=== PATIENT | female | born 1965 | race Caucasian/White ===

== ENCOUNTER 2017-01-19 14:25 | Emergency (ER) | payer OTHER ==
[~2017-01-19] VITALS: Ht 172.7 cm; Wt 90.7 kg
--- NOTE | ~2017-01-19 | CT114 ---
[facility] A Service of [facility] RADIOLOGY TEXT RESULTS PATIENT: MARIAH BANEGAS LOCATION: [facility] : 69 UNIT #: [id number] AGE: [address]: Mechelle Phan APRN SEX: F ORDER DR: [id number] [facility] [address] [place], [place] [address] [id number] E MR#: [id number] #: [id number] NAME: MARIAH BANEGAS : 1965 SEX: F STUDY DATE/TIME: 01/19/2017 15:54 UNIT: [facility] ROOM: STUDY DESCRIPTION: CT Soft Tissue Neck W Cont Attending Physician: Mechelle Phan A.P.R.N. Ordering Physician: Ed Doctor [id number] [facility] REPORT This report is preliminary unless electronic signature is present EXAM CT neck soft tissue. INDICATIONS Pain and swelling in the right side of the neck for 2 weeks. Palp[address] mass. TECHNIQUE [address] of the neck soft tissue utilizing 75 mL Isovue-370 IV contrast. Coronal and sagittal reconstructions were obtained. This CT exam was performed with one or more of the following radiation dose reduction techniques: automatic exposure control, adjustment of mA and/or kV according to patient size, and iterative reconstruction. COMPARISON Facial CT 12/15/2015. FINDINGS There is some minimal stranding in the subcutaneous fat overlying the right posterior aspects of the mid right neck. There is no associated fluid collections. This is most consistent with superficial infection/cellulitis. There is no pathologically enlarged lymph nodes in this region. There is uniform enhancement of the thyroid parenchyma. There is no enlarged cervical lymphadenopathy. The nasopharynx, oropharynx, hypopharynx are within normal limits. No acute osseous abnormalities. Visualized paranasal sinuses are clear. IMPRESSION [facility] A Service [facility] RADIOLOGY TEXT RESULTS PATIENT: MARIAH BANEGAS LOCATION: [facility] : 69 UNIT #: [id number] AGE: [address]: Mechelle Phan APRN SEX: F ORDER DR: Minimal stranding within the right posterolateral aspect of the mid neck most consistent with a superficial infection/cellulitis. No loculated drainable fluid collection or abscess. Dictated by... Carlos A Arriola M.D. THIS IS AN ELECTRONICALLY VERIFIED REPORT Carlos A Arriola M.D. at 01/19/2017 9:32 PM BRIAN/jas TD: 01/19/2017 20:21 JOB #: [id number] MEDICAL IMAGING REPORT Page 1 of 1 COPY
[~2017-01-19 14:25] MED LIST: ATARAX PO; BACTRIM DS TABL1 TA1; BACTRIM DS TABL1 TA1 PO; CLEOCIN PO; ELIMITE60 GM; ELIMITE60 GM TP; FIORCET; FIORCET PO; FIORICET W/CODE1 CAP PO; FLAGYL PO; HYCODAN60 ML 5MG/ PO; IBUPROFEN800 MG PO; KEFLEX500 M1 PO; NO MEDICATIONS; PREDNISONE; PREDNISONE PO; VOLTAREN75 MG PO
[2017-01-19 15:11] LABS: BASOPHIL% 0.3 % (0-2.5); EOSINOPHIL# 0.1 X10e3 (0-0.7); HEMATOCRIT 43.5 % (35.0-45.0); HEMOGLOBIN 14.8 gm/dL (12.0-16.0); LYMPHOCYTE# 2.8 X10e3 (1.0-3.5); LYMPHOCYTE% 32.7 % (17.0-45.0); MEAN CELL VOLUME 91.2 FL (83-96); MEAN CORPUSCULAR HEMOGLOBIN 31.1 PG (28-34); MEAN CORPUSCULAR HGB CONC 34.1 g/dL (30-36); MEAN PLATELET VOLUME 8.2 FL (6.5-11.5); MONOCYTE# 0.4 X10e3 (0-1.0); MONOCYTE% 4.2 % (3.0-12.0); NEUTROPHIL# 5.3 X10e3 (1.5-7.1); NEUTROPHIL% 61.8 % (40-75); PLATELET COUNT 268 X10e3 (140-420); RED BLOOD COUNT 4.77 X10e (3.90-5.30); RED CELL DISTRIBUTION WIDTH 14.7 % (11.0-15.5); WHITE BLOOD COUNT 8.6 X10e3 (4.0-10.5)
[2017-01-19 15:14] LABS: DIFF IND NO
[2017-01-19 15:36] LABS: ALBUMIN SERUM 4.1 g/dL (3.5-5.0); BILIRUBIN, DIRECT 0.1 mg/dL (0.0-0.2); BILIRUBIN,INDIRECT 0.4 mg/dL (0.0-0.9); BILIRUBIN,TOTAL 0.5 mg/dL (0.2-2.0); BUN/CREATININE RATIO 17.5; CREATININE SERUM 0.8 mg/dL (0.6-1.4); GLOM FILT RATE Estimated 86.6 mL/min (>60); POTASSIUM 3.3 mmol/L (3.5-5.1); PROTEIN TOTAL SERUM 7.3 g/dL (6.0-8.3)
== END 2017-01-19 17:38 | disposition home or self-care (01) ==
LOC: CED 14:25 → CFTX 14:25
PROVIDERS: Nurse Practitioner
DX: L03.221 Cellulitis of neck (principal); F17.200 Nicotine dependence, unspecified, uncomplicated; Z86.718 Personal history of other venous thrombosis and embolism; Z90.49 Acquired absence of other specified parts of digestive tract; Z79.82 Long term (current) use of aspirin; Z88.0 Allergy status to penicillin
CPT/HCPCS: 36415; 70491; 80048; 80076; 85025; 96360; 99284; Q9967

== ENCOUNTER 2017-01-23 09:59 | Emergency (ER) | payer OTHER ==
--- NOTE | ~2017-01-23 | EKG ---
PATIENT: MARIAH BANEGAS UNIT #: [id number] Ventricular Rate: 58 BPM Atrial Rate: 58 BPM P-R Interval: 158 ms QRS Duration: 86 ms Q-T Interval: 460 ms QTC Calculation(Bezet): 451 ms P [place]: 33 degrees Calculated R [place]: 15 degrees Calculated T [place]: 32 degrees Diagnosis Line: Sinus bradycardia Diagnosis Line: Otherwise normal ECG Diagnosis Line: No previous ECGs available Diagnosis Line: Confirmed by SHAINA PARDO MD ([id number]) on Diagnosis Line: 01/23/2017 12:33:21 PM INTERPRETING MD: EDVIN PERALTA
--- NOTE | ~2017-01-23 | CO ---
Unit #: [id number] #: [id number] Patient: MARIAH BANEGAS [id number] [facility] [address] [place], [place] [address] [id number] E MR#: [id number] NAME: MARIAH BANEGAS ROOM: Age: 51 Sex: F Admission Date: 01/23/2017 : 1965 Attending Physician: Abhijit Irizarry M.D. Primary Care Physician: [facility] Consultation Date: 01/23/2017 CONSULTATION REPORT PATIENT IDENTIFICATION This is a 51-year-old, right-handed, female, evaluated in the ER room T6 at [facility]. SOURCE OF INFORMATION Obtained from the patient as well as medical record. 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 this morning. She apparently was on the phone with family around 20 minutes after 9 whenever she was noted to have slurred speech. EMS was called and she was brought here to [facility] ER at approximately 10:00 a.m. Code stroke was called about 4 minutes prior to arrival by EMS and we met the patient at the door. The ED physician evaluated the patient quickly at the door on the EMS stretcher and we went over to the CT scanner. The patient's vital signs were stable. Blood glucose was 114. Airway was intact. The patient was noted to have some right-sided weakness, possibly some mild ataxia and slurred speech. Over the CT scanner, her head scan was negative for any bleeding and essentially normal. Her CT angiogram was done. She did show some improvement of her symptoms, but still is exhibiting a measurable deficit on the right side. Dr. Ribeiro evaluated the patient via telemedicine robot while on CT scanner and noted ongoing dysarthria and decreased response on the right side compared to the left. Therefore, recommendation per Dr. Ribeiro was to go ahead and treat if the patient met criteria and had no contraindication and informed consent was given. I revived inclusion and exclusion criteria with the patient at length. She had absolutely no contraindications and was within the 3-hour window. Her was at the bedside. The patient consented and the was in agreement after answering their questions. Dr. Irizarry answered their questions at the bedside as well and reviewed the plan of care. The patient was adamant that she did want treatment and understood the potential risks and benefits of treatment with alteplase and that the recommendation was to consider given the measurable disabling deficit and that she met inclusion and exclusion criteria and had no contraindications. CT scan was negative for any acute intracranial hemorrhage. She is not taking any anticoagulating medications. CBC and BMP and PT/INR were unremarkable. The patient received alteplase approximately 53 minutes after arrival after discussion was done with the family and all their questions were answered. As they did have questions Unit #: [id number] #: [id number] Patient: MARIAH BANEGAS about treatment versus nontreatment, but again after discussion the patient was adamant that she wanted treatment. CT angiogram is negative for any intracranial vascular cut off or high-grade stenosis. Full dictated report is pending. PAST MEDICAL HISTORY 1. Tobacco use. 2. 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 3. History of "blood clots." The patient states that she has had vascular stenting to the right and left leg, details unknown. 4. . 5. Cholecystectomy. She denies any prior history of stroke or stroke-like symptoms. She denies any prior history of seizure. She denies any prior history of neurologic disease other than migraines. She does states that she has had migraines for several years. She denies any prior history of cancer or malignancy of any kind including brain tumor. ALLERGIES Include penicillin. HOME MEDICATIONS Home medications are being reconciled. The patient denies taking any antiplatelet or anticoagulating medications and those were reviewed with her in detail. SOCIAL HISTORY The patient is . Her is at the bedside. She smokes tobacco 1/2 pack per day. Occasional alcohol use, but denies abuse. Denies illicit drug use. FAMILY HISTORY Noncontributory. REVIEW OF SYSTEMS 14-point review of systems was done. Pertinent positives are as discussed above and otherwise negative with the exception that she does state she was treated recently for cellulitis on her neck. She was seen at this facility on 2016. Otherwise, she states that she has been in her usual state of health and felt well this morning whenever she got up. PHYSICAL EXAMINATION VITAL SIGNS: Temperature 97.8, pulse 58, respirations 16, blood pressure 121/77, blood pressure on arrival is 147/77, oxygen saturation 95%, height 5 feet 8 inches, weight 200 pounds. BMI 30. NEUROLOGIC: She is awake. She is fully alert and oriented to person, place, and time as well as events. She has no right or left confusion. No finger agnosia. She is not aphasic. Repeat exam does not reveal any aphasia. She is dysarthric. No apraxia. Cranial nerve exam, she demonstrates full garcia of vision. Eyes are conjugate without ptosis or nystagmus. Extraocular movements are intact. Sensation of face and scalp is intact. Strength of muscles of the facial expression does not reveal any flattening of the nasolabial fold and he is noted with cranial nerve abnormal findings. Hearing is intact to finger rub and conversation. Tongue is midline. Unable to visualize uvula and palate. Head turning is unremarkable. Shoulder shrug is unremarkable. Neck is supple. Motor exam, she demonstrates a very robust response on the left upper and lower extremity 5+ out of five on the right side, initially about 4/5 to 4+-5, but definitely has less of a robust response. She has a drift on the Unit #: [id number] #: [id number] Patient: MARIAH BANEGAS right lower extremity consistently , but does not fall against the bed but she has trouble against gravity and there does not appear to be improvement in the right upper extremity and is definitely weaker compared to the right. Sensory exam; however is intact. Gait and Romberg deferred. Reflexes, 1/4. Toes are equivocal. Coordination, she is slower on the right. She has a little bit of difficulty, but no past-pointing is seen. DIAGNOSTIC STUDIES IMAGING STUDIES: CT of the head without contrast is unremarkable. CT angiogram of the head and neck as discussed above. Full dictated report is pending. LABORATORY RESULTS: BMP unremarkable other than CO2 of 21, glucose of 113, PT 10.8, INR 1.0, PTT 30.1. CBC unremarkable with a platelet count of 310, white count of 10, hemoglobin 15.2, hematocrit 44.5. IMPRESSION 1. Sudden onset focal right-sided weakness and dysarthria in a 51-year-old concerning for possible subcortical infarct. The patient is treated at this facility in the ED with IV alteplase. 2. Tobacco use. 3. Obesity with a BMI of 30. 4. History of "blood clots" per the patient, details unknown. PLAN The patient elected to have treatment with IV alteplase. Inclusion and exclusion criteria was met and guidelines were met with a measurable deficit as per the treating physicians. The patient was seen via telemedicine robot by Dr. Ribeiro. The recommendation was to give IV alteplase if the patient meets inclusion and exclusion criteria, and again the patient gave informed consent and wishes to be treated in light of possibility the patient may be having a subcortical infarct. The patient is stable at this time and is receiving IV alteplase. Vital signs are stable. Workup is stable and the patient is being evaluated by the nurse per code stroke protocol with IV alteplase. The patient is being transferred to [facility] as we do not have MRI capabilities until tomorrow evening to fully evaluate the patient at this time. We thank you very much for allowing us to assist in the care of this patient. Critical care time spent with this patient and decision making, consultation with the patient, discussion with attending in the ED physician, and evaluation at the patient was 53 minutes from the time of arrival at 10:00 am to 10:53 am. Dictated by... Mariah Rodriguez A.P.R.N. for Patrick Vogel/lynne TD: 01/23/2017 18:55 JOB #: [id number] Unit #: [id number] #: [id number] Patient: MAKENZIEMARIAH CONSULTATION REPORT Page 1 of 1 X Mariah Rodriguez APRN X CONSULTATION REPORT
--- NOTE | ~2017-01-23 | CT72 ---
[facility] A Service of [facility] RADIOLOGY TEXT RESULTS PATIENT: MARIAH BANEGAS LOCATION: [facility] : 69 UNIT #: [id number] AGE: [address]: Abhijit Irizarry MD SEX: F ORDER DR: [id number] [facility] [address] [place], [place] [address] [id number] E MR#: [id number] Acc #: [id number] NAME: MARIAH BANEGAS : 1965 SEX: F STUDY DATE/TIME: 01/23/2017 10:11 UNIT: [facility] ROOM: STUDY DESCRIPTION: CT Head Wo Contrast Stroke Attending Physician: Abhijit Irizarry M.D. Ordering Physician: Abhijit Irizarry M.D. Primary Care Physician: [facility] IMAGING REPORT This report is preliminary unless electronic signature is present EXAM CT head without contrast, stroke, 01/23/2017 1011 hours HISTORY 51-year-old woman with slurred speech, right body weakness since 0920 hours this morning. History of blood clots. COMPARISON None. TECHNIQUE Axial noncontrasted images are obtained through the brain. Total exam DLP 776 mGy-cm. This CT examination was performed with one or more of the following radiation dose reduction techniques: automatic exposure control, adjustment of mA and/or kV according to patient size, and iterative reconstruction. FINDINGS The study demonstrates normal-size ventricles and sulci. There is no mass, mass effect, hemorrhage or edema. There is no extraaxial fluid collection. No effacement of sulci is seen at this time. Bone window images are negative. IMPRESSION Negative noncontrasted head CT. There is no hemorrhage, mass or mass effect. No effacement of sulci is seen at this time. STAT * RESULT [facility] A Service of [facility] RADIOLOGY TEXT RESULTS PATIENT: MARIAH BANEGAS LOCATION: [facility] : [birth year] UNIT #: [id number] AGE: [address]: Abhijit Irizarry MD SEX: F ORDER DR: Dictated by... Sheeba Moss M.D. THIS IS AN ELECTRONICALLY VERIFIED REPORT Sheeba Moss M.D. at 01/23/2017 2:23 PM MURTAZA/bart TD: 01/23/2017 10:32 JOB #: [id number] MEDICAL IMAGING REPORT Page 1 of 1 COPY
--- NOTE | ~2017-01-23 | CT18 ---
[facility] A Service of [facility] RADIOLOGY TEXT RESULTS PATIENT: MARIAH BANEGAS LOCATION: [facility] : 69 UNIT #: [id number] AGE: [address]: Abhijit Irizarry MD SEX: F ORDER DR: [id number] [facility] [address] [place], [place] [address] [id number] E MR#: [id number] Acc #: [id number] NAME: MARIAH BANEGAS : 1965 SEX: F STUDY DATE/TIME: 01/23/2017 10:18 UNIT: [facility] ROOM: STUDY DESCRIPTION: CT Angio Head Stroke Attending Physician: Abhijit Irizarry M.D. Ordering Physician: Abhijit Irizarry M.D. Primary Care Physician: [facility]. MEDICAL IMAGING REPORT This report is preliminary unless electronic signature is present EXAM CT angiogram of the head. HISTORY Stroke evaluation. Focal neurologic deficit, slurred speech with right-sided weakness since 0920 this morning. FINDINGS Please see CT angio neck stroke for result text. Dictated by... Liz Parish M.D. THIS IS AN ELECTRONICALLY VERIFIED REPORT Liz Parish M.D. at 01/23/2017 12:29 PM MARY/thanh TD: 01/23/2017 11:43 JOB #: [id number] MEDICAL IMAGING REPORT Page 1 of 1 COPY
--- NOTE | ~2017-01-23 | CT24 ---
[facility] A Service of [facility] RADIOLOGY TEXT RESULTS PATIENT: MARIAH BANEGAS LOCATION: [facility] : 69 UNIT #: [id number] AGE: [address]: Abhijit Irizarry MD SEX: F ORDER DR: [id number] [facility] [address] [place], [place] [address] [id number] E MR#: [id number] Acc #: [id number] NAME: MARIAH BANEGAS : 1965 SEX: F STUDY DATE/TIME: 01/23/2017 10:18 UNIT: [facility] ROOM: STUDY DESCRIPTION: CT Angio Neck Stroke Attending Physician: Abhijit Irizarry M.D. Ordering Physician: Abhijit Irizarry M.D. [facility] REPORT This report is preliminary unless electronic signature is present EXAM CT angiogram of the head and neck. HISTORY Stroke evaluation. Focal neurologic deficit, slurred speech with right-sided weakness since [address] angiography of the head and neck vessels performed during the intravenous administration of 100 mL of Isovue-370. Imaging acquired in the axial plane followed by multiple reconstructed and reformatted images for the purpose of 3-D CT angiography of the head and neck vessels. This CT exam was performed with one or more of the following radiation dose reduction techniques: automatic exposure control, adjustment of mA and/or kV according to patient size, and iterative reconstruction. There is earlier head CT from same day. CT ANGIOGRAM NECK: There is mild atherosclerotic vascular calcification at the origin of the left subclavian artery with perhaps mild stenosis. Aortic arch branch pattern is normal. Evaluation of the right carotid system shows 0% stenosis of the right carotid bifurcation by NASCET criteria. There are carotid siphon is widely patent. Evaluation of the left carotid system shows mild noncalcified plaque distal common to proximal bulb but by NASCET criteria 0% diameter stenosis. The left carotid siphon is widely patent. The left vertebral artery is dominant and widely patent. The right vertebral artery is smaller but patent throughout. Evaluation of the intracranial circulation shows an incidental STS. [facility] A Service of [facility] & [facility] RADIOLOGY TEXT RESULTS PATIENT: MARIAH BANEGAS LOCATION: [facility] : 69 UNIT #: [id number] AGE: [address]: Abhijit Irizarry MD SEX: F ORDER DR: fenestration proximal basilar artery. There are moderate-sized bilateral posterior communicators. There is a tiny anterior communicator. The left P1 vessel is hypoplastic and I cannot exclude some superimposed disease. Otherwise, there is no focal central stenosis suspected. Dural venous sinuses are grossly patent. No intracranial aneurysm is suspected allowing for the technical limitation of CT angiography for assessment for aneurysm, particularly at the skull base. This study is also somewhat limited by considerable amount of intracranial venous contamination. IMPRESSION 1. By NASCET criteria, 0% stenosis at either carotid bifurcation. Both vertebral arteries are patent left dominant. Both supply the basilar. 2. There is no intracranial vascular cutoff. 3. There are moderate-sized bilateral posterior communicating arteries. The left P1 vessel is probably hypoplastic but I cannot exclude some superimposed disease. Otherwise, no focal central stenosis is suspected. 4. There is a small anterior communicator present. 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 STAT * RESULT Dictated by... Liz Parish M.D. THIS IS AN ELECTRONICALLY VERIFIED REPORT Liz Parish M.D. at 01/23/2017 12:29 PM MARY/thanh TD: 01/23/2017 11:38 JOB #: [id number] MEDICAL IMAGING REPORT Page 1 of 1 COPY
[2017-01-23 10:17] LABS: BASOPHIL# 0.1 X10e3 (0-0.3); BASOPHIL% 0.9 % (0-2.5); EOSINOPHIL# 0.1 X10e3 (0-0.7); EOSINOPHIL% 0.8 % (0.0-7.0); HEMATOCRIT 44.5 % (35.0-45.0); HEMOGLOBIN 15.2 gm/dL (12.0-16.0); LYMPHOCYTE# 2.6 X10e3 (1.0-3.5); LYMPHOCYTE% 26.4 % (17.0-45.0); MEAN CELL VOLUME 91.3 FL (83-96); MEAN CORPUSCULAR HEMOGLOBIN 31.3 PG (28-34); MEAN CORPUSCULAR HGB CONC 34.2 g/dL (30-36); MEAN PLATELET VOLUME 8.1 FL (6.5-11.5); MONOCYTE# 0.6 X10e3 (0-1.0); MONOCYTE% 5.8 % (3.0-12.0); NEUTROPHIL# 6.6 X10e3 (1.5-7.1); NEUTROPHIL% 66.1 % (40-75); PLATELET COUNT 310 X10e3 (140-420); RED BLOOD COUNT 4.87 X10e (3.90-5.30); RED CELL DISTRIBUTION WIDTH 14.8 % (11.0-15.5)
[2017-01-23 10:18] LABS: DIFF IND NO
[2017-01-23] MEDS ORDERED: PATIENT'S PHARMACY (10:19)
[2017-01-23] MEDS ORDERED: NAPROSYN500 MG PO (10:20)
[2017-01-23] MEDS ORDERED: CLEOCIN HCL300 M1 PO (10:20)
[2017-01-23 10:30] LABS: PARTIAL THROMBOPLASTIN TIME 30.1 SECONDS (23.5-31.3); PROTHROMBIN TIME (PATIENT) 10.8 SECONDS (10.0-11.7)
[2017-01-23 10:46] LABS: ALBUMIN SERUM 4.2 g/dL (3.5-5.0); BILIRUBIN, DIRECT 0.1 mg/dL (0.0-0.2); BILIRUBIN,INDIRECT 0.6 mg/dL (0.0-0.9); BILIRUBIN,TOTAL 0.7 mg/dL (0.2-2.0); BUN/CREATININE RATIO 15.71; CALCIUM SERUM 8.8 mg/dL (8.4-10.2); CREATININE SERUM 0.7 mg/dL (0.6-1.4); GLOM FILT RATE Estimated 101.7 mL/min (>60); POTASSIUM 3.7 mmol/L (3.5-5.1); PROTEIN TOTAL SERUM 7.3 g/dL (6.0-8.3)
[2017-01-23 20:21] LABS: POC - CREATININE 0.82 mg/dL (0.44-1.03); POC - GFR >60.0 mL/min (>60)
== END 2017-01-23 11:50 | disposition short-term general hospital (02) ==
LOC: CED 09:59
PROVIDERS: Emergency Medicine
DX: R53.1 Weakness (principal); R51 Headache; Z88.0 Allergy status to penicillin; Z79.899 Other long term (current) drug therapy
CPT/HCPCS: 36415; 70450; 70496; 70498; 80048; 80076; 82565; 82947; 85025; 85610; 85730; 90471; 93005; 96360; 96365; 99291; J2997; Q9967